=== PATIENT | female | born 1955 | race Caucasian/White ===

== ENCOUNTER → 2016-09-07 | Outpatient (CLI) | payer MEDICARE, BC, OTHER ==
[2016-09-07 14:23] LABS: GLUCOSE CSF 64 MG/DL (40-75)
[2016-09-07 14:34] LABS: RBC CSF AUTO 103 /mm3 (0-0); WBC CSF AUTO 3 /mm3 (0-10)
[2016-09-07 14:36] LABS: APPEARANCE, CSF CLEAR (CLEAR); COLOR, CSF COLORLESS (COLORLESS); CSF TUBE# CELL CNT TUBE 1
[2016-09-07 14:37] LABS: CSF DIFF IF INDICATED? NO (NO); CSF DILUENT LOT # 6221
--- NOTE | 2016-09-07 17:24 | REP ---
FLUORO GUIDANCE FOR LUMBAR PUNCTURE: The procedure was performed under the direct supervision of Dr. Chand. The risks and benefits of the procedure were explained and informed consent was obtained by the healthcare proxy. The L3-4 interspace was localized using fluoroscopic guidance. The skin was prepped and draped in a sterile fashion. 1% lidocaine was used as a local anesthetic. Using fluoroscopic guidance, a 22-gauge spinal needle was inserted and advanced into the thecal sac. 24 mL of spinal fluid was withdrawn. It was at this point that the fluid stopped coming out. The patient tolerated the procedure well and there were no immediate complications. After the appropriate amount of monitored convalescence, the patient was discharged from the department. 13 seconds of fluoroscopy time was utilized for this procedure. Reviewed by SARAH Vo 09/08/2016 05:12 PEdited and Signed by Kamar Chand MD 09/09/2016 10:17 A
== END ==
LOC: M RADPRO 12:36
PROVIDERS: ATTEND Neurological Surgery
DX: G91.2 (Idiopathic) normal pressure hydrocephalus (principal); Z72.0 Tobacco use; Z79.899 Other long term (current) drug therapy